=== PATIENT | male | born 1985 | race Caucasian/White ===

== ENCOUNTER 2017-03-17 15:43 | Emergency (ER) | payer OTHER ==
[2017-03-17] MEDS ORDERED: chlordiazePOXIDE 25 MG CAP PO ONE (16:25)
[2017-03-17] MEDS ORDERED: LORazepam 1 MG TAB PO ONE (16:25)
[2017-03-17] MEDS ORDERED: FAMOTIDINE 20 MG/2 ML SDV IVP ONE (16:26)
[2017-03-17] MEDS ORDERED: ONDANSETRON 4 MG/2 ML VIAL IVP ONE (16:26)
--- NOTE | 2017-03-17 16:30 | EDPHY ---
H & P Stated Complaint: N/V/D since last night - feels he is "detoxing". Source: Patient Exam Limitations: No limitations - Personal History Current Tetanus Diphtheria and Acellular Pertussis (TDAP): No - Medical/Surgical History Hx Asthma: Yes Hx Chronic Respiratory Disease: No Hx Diabetes: No Hx Cardiac Disease: No Hx Renal Disease: No Hx Cirrhosis: No Hx Alcoholism: Yes Hx HIV/AIDS: No Hx Splenectomy or Spleen Trauma: No Other PMH: ETOH. C-Diff 03/04/17. - Social History Smoking Status: Current every day smoker Time Seen by Provider: 03/17/17 16:27 HPI/ROS: HPI: This is a 31-year-old male who presents with Chief Complaint: Alcohol withdrawal Location: Body Quality: Alcohol withdrawal Duration: Since this morning Signs and Symptoms: + nausea, + vomiting x2, no hematemesis, no blood in stool, + mild epigastric burning pain, no seizure activity, no diarrhea, no fever, no chills, no shortness of breath, no chest pain, no visual or auditory disturbances Timing: Sudden Severity: Moderate Context: Patient reports he drinks a 5th to half a pint of Tequila daily. His last use was 9:00 p.m. last night. He reports that he woke up this morning feeling nauseous, tremulous, anxious, he has vomited x2. He has not eaten anything today. In August he tried to detox himself from alcohol and on been the hospital per patient. He denies seizure activity from withdrawal. He denies wanting to harm himself/or others. Does state that he at times does not know why there is any reason to continue to live. Modifying Factors: Antibiotic for C diff Comment: ROS: see HPI Constitutional: No fever, no chills, no weight loss Eyes: No blurred vision Respiratory: No shortness of breath, no cough Cardiovascular: No chest pain Gastrointestinal: + nausea, + vomiting, no diarrhea Genitourinary: No dysuria Extremities: No myalgias Neurologic: No weakness, no numbness Skin: No rashes Hematologic: No bruising, no bleeding MEDICAL/SURGICAL/SOCIAL HISTORY: Medical history: C diff infection currently on antibiotics. Surgical history: Tracheotomy as a young infant secondary to epiglottitis. Social history: Employed. Daily alcohol abuse. CONSTITUTIONAL: Pleasant adult white male, awake and alert, no obvious distress HEENT: Atraumatic and normocephalic, PERRL, EOMI. Wears glasses, Tympanic membranes clear. Oropharynx clear, no exudate and moist pink mucosa. Airway patent. No lymphadenopathy. No meningismus. Cardiovascular: Normal S1/S2, mild tachycardia, regular rhythm, without murmur rub or gallop. PULMONARY/CHEST: Symmetrical and nontender. Clear to auscultation bilaterally. Good air movement. No accessory muscle usage. ABDOMEN: Soft, nondistended, nontender, no rebound, no guarding, no peritoneal signs, no masses or organomegaly. No CVAT. EXTREMITIES: 2/2 pulses, no deformities, no clubbing, no cyanosis or edema. NEUROLOGICAL: no focal neuro deficits. GCS 15. SKIN: Warm and dry, no erythema. no rash. Good capillary refill. PSYCH: good eye contact, no flight of ideas, organized thought process, good insight and judgment, no auditory and visual command hallucinations, no suicidal ideation with a plan, no homicidal ideation, no paranoia (Cortney Abraham) Constitutional: Initial Vital Signs Temperature (C) 37.2 C 03/17/17 15:49 Heart Rate 112 H 03/17/17 15:49 Respiratory Rate 16 03/17/17 15:49 Blood Pressure 140/94 H 03/17/17 15:49 O2 Sat (%) 92 03/17/17 15:49 O2 Delivery Mode Room Air Allergies/Adverse Reactions: latex Allergy (Uncoded 03/17/17 15:53) Home Medications: Medication Instructions Recorded Vancocin Oral Liquid 03/17/17 chlordiazePOXIDE 25MG PREPK#6 1 tab TAKEHOME Q6 #6 btl 03/17/17 [Librium 25 mg Prepack#6] Medical Decision Making ED Course/Re-evaluation: Labs, UDS, IV fluids, IV medications ordered 1630: CIWA score=11. Given 2 L normal saline, IV Ativan, IV Pepcid, IV Zofran and p.o. Librium. No SI/HI/delirium/seizures/electrolyte imbalance/acute kidney injury repeat CIWA=2 Discharge to the [facility]. (Cortney Abraham) Patient's CIWA scale is decreasing. Patient is stable. The plan had been to take the patient to alcohol recovery Center however he has a non intoxicated friend who is willing to stay with the patient overnight. Patient will go home with his non intoxicated friend (Cristian Pate) Differential Diagnosis: Altered mental status including but not limited to hypoglycemia, infectious process, electrolyte abnormality, head injury and intoxicants. (Cortney Abraham) - Data Points Laboratory Results: Laboratory Results 03/17/17 16:48 03/17/17 16:48 03/17/17 03/17/17 16:48 16:48 WBC 8.86 10^3/uL 10^3/uL (3.80-9.50) RBC 5.58 10^6/uL 10^6/uL (4.40-6.38) Hgb 17.5 g/dL g/dL (13.7-17.5) Hct 48.7 % % (40.0-51.0) MCV 87.3 fL fL (81.5-99.8) MCH 31.4 pg pg (27.9-34.1) MCHC 35.9 g/dL g/dL (32.4-36.7) RDW 13.6 % % (11.5-15.2) Plt Count 340 10^3/uL 10^3/uL (150-400) MPV 8.8 fL fL (8.7-11.7) Neut % (Auto) 57.0 % % (39.3-74.2) Lymph % (Auto) 33.9 % % (15.0-45.0) Logan % (Auto) 5.9 % % (4.5-13.0) Eos % (Auto) 2.0 % % (0.6-7.6) Baso % (Auto) 1.0 % % (0.3-1.7) Nucleat RBC Rel Count 0.0 % % (0.0-0.2) Absolute Neuts (auto) 5.05 10^3/uL 10^3/uL (1.70-6.50) Absolute Lymphs (auto) 3.00 10^3/uL 10^3/uL (1.00-3.00) Absolute Monos (auto) 0.52 10^3/uL 10^3/uL (0.30-0.80) Absolute Eos (auto) 0.18 10^3/uL 10^3/uL (0.03-0.40) Absolute Basos (auto) 0.09 10^3/uL 10^3/uL (0.02-0.10) Absolute Nucleated RBC 0.00 10^3/uL 10^3/uL (0-0.01) Immature Gran % 0.2 % % (0.0-1.1) Immature Gran # 0.02 10^3/uL 10^3/uL (0.00-0.10) Sodium 139 mEq/L mEq/L (134-144) Potassium 4.4 mEq/L mEq/L (3.5-5.2) Chloride 102 mEq/L mEq/L (97-110) Carbon Dioxide 23 mEq/l mEq/l (22-31) Anion Gap 14 mEq/L mEq/L (8-16) BUN 14 mg/dL mg/dL (7-23) Creatinine 0.9 mg/dL mg/dL (0.7-1.3) Estimated GFR > 60 Glucose 81 mg/dL mg/dL (70-100) Calcium 8.6 mg/dL mg/dL (8.5-10.4) Total Bilirubin 0.7 mg/dL mg/dL (0.1-1.4) Conjugated Bilirubin 0.3 mg/dL mg/dL (0.0-0.5) Unconjugated Bilirubin 0.4 mg/dL mg/dL (0.0-1.1) AST 39 IU/L IU/L (17-59) ALT 36 IU/L IU/L (21-72) Alkaline Phosphatase 60 IU/L IU/L (38-126) Total Protein 6.2 g/dL L g/dL (6.3-8.2) Albumin 3.7 g/dL g/dL (3.5-5.0) Lipase 152 IU/L IU/L (23-300) Salicylates < 1.0 mg/dL L mg/dL (2.0-20.0) Acetaminophen < 10 mcg/mL L mcg/mL (10-30) Ethyl Alcohol 174 mg/dL H mg/dL (0-10) Medications Given: Discontinued Medications Chlordiazepoxide (Librium 25 Mg Prepack#6) 1 btl TAKEHOME EDNOW ONE Stop: 03/17/17 19:25 Last Admin: 03/17/17 19:43 Dose: 1 btl Chlordiazepoxide HCl (Librium) 25 mg PO EDNOW ONE Stop: 03/17/17 16:26 Last Admin: 03/17/17 16:56 Dose: 25 mg Famotidine (Pepcid) 20 mg IVP EDNOW ONE Stop: 03/17/17 16:27 Last Admin: 03/17/17 16:55 Dose: 20 mg Sodium Chloride (Ns) 1,000 mls @ 0 mls/hr IV EDNOW ONE; Wide Open PRN Reason: Protocol Stop: 03/17/17 17:31 Last Admin: 03/17/17 18:14 Dose: 1,000 mls Lorazepam (Ativan) 1 mg PO EDNOW ONE Stop: 03/17/17 16:26 Last Admin: 03/17/17 16:56 Dose: 1 mg Ondansetron HCl (Zofran) 4 mg IVP EDNOW ONE Stop: 03/17/17 16:27 Last Admin: 03/17/17 16:55 Dose: 4 mg Departure - Departure Disposition: Home, Routine, Self-Care Clinical Impression: Alcohol withdrawal Qualifiers: Complication of substance-induced condition: uncomplicated Qualified Code(s): F10.230 - Alcohol dependence with withdrawal, uncomplicated Condition: Good Instructions: Chlordiazepoxide (By mouth), Abuse of Alcohol (ED), Alcohol Withdrawal (ED) Referrals: [facility] [Outside] - As per Instructions Prescriptions: chlordiazePOXIDE 25MG PREPK#6 [Librium 25 mg Prepack#6] 1 tab TAKEHOME Q6 #6 btl
[2017-03-17] MEDS ORDERED: NS 1,000 ML IV ONE ×3 (16:53→17:30)
[2017-03-17 17:05] LABS: % IMMATURE GRANULYOCYTES 0.2 % (0.0-1.1); ABSOLUTE IMMATURE GRANULOCYTES 0.02 10^3/uL (0.00-0.10); ADD DIFF? NO; ADD MORPH? NO; ADD SCAN? NO; ATYPICAL LYMPHOCYTE FLAG 10 (0-99); FRAGMENT RBC FLAG 0 (0-99); HEMATOCRIT 48.7 % (40.0-51.0); HEMOGLOBIN 17.5 g/dL (13.7-17.5); LEFT SHIFT FLG 0 (0-99); LIPEMIA HEMOLYSIS FLAG 90 (0-99); MEAN CELL HEMOGLOBIN 31.4 pg (27.9-34.1); MEAN CELL HEMOGLOBIN CONCENTR. 35.9 g/dL (32.4-36.7); MEAN CELL VOLUME 87.3 fL (81.5-99.8); MEAN PLATELET VOLUME 8.8 fL (8.7-11.7); PLATELET CLUMPS FLAG 10 (0-99); PLATELET COUNT 340 10^3/uL (150-400); RED BLOOD CELL COUNT 5.58 10^6/uL (4.40-6.38); RED CELL DISTRIBUTION WIDTH 13.6 % (11.5-15.2)
[2017-03-17 17:13] LABS: ALANINE AMINOTRANSFERASE 36 IU/L (21-72); ALBUMIN 3.7 g/dL (3.5-5.0); ALKALINE PHOSPHATASE 60 IU/L (38-126); ANION GAP 14 mEq/L (8-16); ASPARTATE AMINOTRANSFERASE 39 IU/L (17-59); BILIRUBIN,TOTAL 0.7 mg/dL (0.1-1.4); BILIRUBIN-CONJUGATED 0.3 mg/dL (0.0-0.5); BILIRUBIN-UNCONJUGATED 0.4 mg/dL (0.0-1.1); CALCIUM 8.6 mg/dL (8.5-10.4); CARBON DIOXIDE 23 mEq/l (22-31); CHLORIDE 102 mEq/L (97-110); CREATININE 0.9 mg/dL (0.7-1.3); ETHANOL SERUM 174 mg/dL (0-10); GLOMERULAR FILTRATION RATE > 60; GLUCOSE 81 mg/dL (70-100); POTASSIUM 4.4 mEq/L (3.5-5.2); SALICYLATE < 1.0 mg/dL (2.0-20.0); SODIUM 139 mEq/L (134-144); TOTAL PROTEIN 6.2 g/dL (6.3-8.2)
[2017-03-17] MEDS ORDERED: CHLORDIAZEPOXIDE 25MG PREPK#6 BTL TAKEHOME ONE (19:24)
[2017-03-17 19:49] VITALS: RESP 18
[2017-03-17 19:51] VITALS: BP 139/89; PULSE 99; TEMP 97.7; O2SAT 94
== END 2017-03-17 19:51 | disposition home or self-care (01) ==
DX: F10.230 Alcohol dependence with withdrawal, uncomplicated (principal); F17.200 Nicotine dependence, unspecified, uncomplicated; J45.909 Unspecified asthma, uncomplicated; E86.9 Volume depletion, unspecified; Z91.040 Latex allergy status
CPT/HCPCS: 96374; G0480; J2405